=== PATIENT | female | born 1990 ===

== ENCOUNTER 2020-02-14 07:36 | Inpatient (IN) ==
[2020-02-14] MEDS ORDERED: FAMOTIDINE 20 MG/2 ML VIAL IV ONE (08:00)
[2020-02-14] MEDS ORDERED: CITRIC ACID/SODIUM CITRATE 30 ML UDCUP PO ONE (08:00)
[2020-02-14] MEDS ORDERED: ceFAZolin 3,000 MG in SYRINGE 1 EACH IV ONE ×2 (08:00→08:30)
[2020-02-14] MEDS ORDERED: LACTATED RINGERS 1,000 ML IV SCH ×2 (08:00→14:30)
[2020-02-14] MEDS ORDERED: OXYTOCIN 10 UNIT/ML VIAL IM ONE ×2 (08:02→10:04)
[2020-02-14] MEDS ORDERED: OXYTOCIN/LR 30 UNIT/1,000 ML BAG IV ONE (08:02)
[2020-02-14 08:26] LABS: Basophils % 0.2 % (0.0-0.8); Eosinophils # 0.2 10*3/uL (0.0-0.87); Eosinophils % 1.6 % (0.00-10.9); Hematocrit 31.9 VOL% (35.7-47.0); Hemoglobin 10.4 GM/DL (12.0-16.0); Immature Granulocytes % 0.3 %; Immature Granulocytes Absolute 0.03 #; Lymphocytes # 1.9 10*3/uL (1.4-4.0); Lymphocytes % 20.1 % (21.3-54.2); Mean Corpuscular HGB Conc 32.6 GM/DL (32-36); Mean Corpuscular Volume 86.4 FL (87-102); Monocytes % 6.1 % (1.7-12.7); Neutrophils % 71.7 % (38.7-73.9); Platelet Count 390 T/CUMM (130-400); Red Blood Count 3.69 MC/CUMM (3.8-5.5); Red Cell Distribution Width 15.4 % (9.3-17.3); White Blood Count 9.5 T/CUMM (4-12)
[2020-02-14 08:48] LABS: Alanine Aminotransferase 9 U/L (13-56); Albumin 2.3 G/DL (3.4-5.0); Alkaline Phosphatase 143 U/L (45-117); Aspartate Amino Transferase 7 U/L (0-37); Bilirubin,Total < 0.39 MG/DL (0.2-1.0); Blood Urea Nitrogen 9 MG/DL (7-18); Calcium 8.6 MG/DL (8.5-10.1); Estimated Glom Filtration Rate 141 ML/MIN; Glucose 114 MG/DL (74-106); Osmolality,Calculated 278.4 MOS/KG (273-304); Total Protein 6.9 G/DL (6.4-8.3)
[2020-02-14] MEDS ORDERED: PHENYLEPHRINE 1 MG/10 ML SYRINGE IV ONE (09:20)
[2020-02-14] MEDS ORDERED: BUPIVACAINE 0.25% 50 ML VIAL ONE (09:20)
[2020-02-14] MEDS ORDERED: BUPIVACAINE SPINAL 0.75% 2 ML AMP SPINAL ONE (09:21)
[2020-02-14] MEDS ORDERED: DEXAMETHASONE 10 MG/1 ML VIAL ONE (09:21)
[2020-02-14] MEDS ORDERED: MORPHINE 10 MG/10 ML VIAL ONE (09:21)
[2020-02-14] MEDS ORDERED: ONDANSETRON 4 MG/2 ML VIAL ONE ×2 (09:21→09:22)
[2020-02-14] MEDS ORDERED: fentaNYL 100 MCG/2 ML VIAL ONE (09:21)
[2020-02-14] MEDS ORDERED: DEXAMETHASONE 4 MG/1 ML VIAL ONE (09:22)
[2020-02-14 13:16] LABS: Cord Arterial Blood HCO3 21.7 MMOL/L
[2020-02-14 13:19] LABS: Cord Venous Blood HCO3 22.5 MMOL/L; Cord Venous Blood PCO2 55.1 MMHG; Cord Venous Blood PO2 22.6
[2020-02-14 13:24] LABS: Apearance,Urine CLEAR (Clear); Bacteria,Urine Occasional /HPF (Few); Bilirubin,Urine Negative (Negative); Blood, Urine Negative (Negative); Glucose,Urine (UA) Negative (Negative); Ketones,Urine Negative (Negative); Mucus,Urine Occasional /LPF (Occasional); Nitrite,Urine Negative (Negative); Protein,Urine Negative; RBC,Urine 1 /HPF (0-4); Squamous Epithelial Cell,Urine Occasional /HPF (0-10); Urine Color Yellow (Yellow); Urine Specific Gravity 1.029 (1.001-1.035); WBC,Urine 1 /HPF (0-6)
[2020-02-14] MEDS ORDERED: GLYCOPYRROLATE 0.4 MG/2 ML VIAL ONE (13:49)
[2020-02-14] MEDS ORDERED: RHO(D) IMMUNE GLOBULIN 300 MCG SYRINGE IM ONE (14:06)
[2020-02-14] MEDS ORDERED: ACETAMINOPHEN 325 MG TABLET PO PRN (14:06)
[2020-02-14] MEDS ORDERED: ONDANSETRON 4 MG/2 ML VIAL IV PRN (14:06)
[2020-02-14] MEDS ORDERED: OXYTOCIN/LR 20 UNIT/1,000 ML BAG IV ONE (14:06)
[2020-02-14] MEDS: ceFAZolin 1,000 MG in SYRINGE 1 EACH IV SCH (19:34)
[2020-02-14 20:53] LABS: Basophils % 0.2 % (0.0-0.8); Eosinophils % 0.1 % (0.00-10.9); Hematocrit 32.1 VOL% (35.7-47.0); Hemoglobin 10.4 GM/DL (12.0-16.0); Immature Granulocytes % 0.5 %; Immature Granulocytes Absolute 0.08 #; Lymphocytes # 0.9 10*3/uL (1.4-4.0); Lymphocytes % 5.3 % (21.3-54.2); Mean Corpuscular HGB Conc 32.4 GM/DL (32-36); Mean Corpuscular Volume 88.4 FL (87-102); Mean Platelet Volume 8.8 FL (9.6-12.0); Monocytes % 3.1 % (1.7-12.7); Neutrophils % 90.8 % (38.7-73.9); Platelet Count 370 T/CUMM (130-400); Red Blood Count 3.63 MC/CUMM (3.8-5.5); Red Cell Distribution Width 15.4 % (9.3-17.3); White Blood Count 16.9 T/CUMM (4-12)
[2020-02-14 21:33] LABS: Band Neutrophils 1 % (0-10); Lymphocytes 12 % (20-55); Platelet Estimate Normal; Segmented Neutrophils 82 % (50-85); Total Cells Counted 100
[2020-02-15] MEDS: ceFAZolin 1,000 MG in SYRINGE 1 EACH IV SCH (03:30)
[2020-02-15] MEDS: IBUPROFEN 800 MG TABLET PO PRN (03:38)
[2020-02-15 05:27] LABS: Basophils % 0.1 % (0.0-0.8); Eosinophils # 0.1 10*3/uL (0.0-0.87); Eosinophils % 0.4 % (0.00-10.9); Immature Granulocytes % 0.6 %; Immature Granulocytes Absolute 0.08 #; Mean Corpuscular HGB Conc 32.1 GM/DL (32-36); Mean Corpuscular Volume 88.3 FL (87-102); Monocytes % 7.2 % (1.7-12.7); Neutrophils % 76.7 % (38.7-73.9); Platelet Count 339 T/CUMM (130-400); Red Blood Count 3.17 MC/CUMM (3.8-5.5); Red Cell Distribution Width 15.3 % (9.3-17.3); White Blood Count 13.6 T/CUMM (4-12)
[2020-02-15] MEDS: MULTIVITAMIN (PRENATAL) TABLET PO SCH (09:16)
[2020-02-15] MEDS: MAGNESIUM HYDROXIDE SUSP 30 ML UDCUP PO PRN ×2 (09:16→20:00)
[2020-02-15] MEDS: SIMETHICONE CHEW 80 MG TABLET PO PRN (09:16)
[2020-02-15] MEDS: DOCUSATE SODIUM 100 MG CAPSULE PO SCH ×2 (09:17→20:00)
[2020-02-16] MEDS: IBUPROFEN 800 MG TABLET PO PRN ×2 (02:38→09:48)
[2020-02-16] MEDS ORDERED: DIPH/TET/ACEL PERT BOOSTER VACCINE 0.5 ML VIAL IM ONE (08:35)
[2020-02-16 08:58] VITALS: BP 108/63
[2020-02-16] MEDS: DOCUSATE SODIUM 100 MG CAPSULE PO SCH (09:45)
[2020-02-16] MEDS: MULTIVITAMIN (PRENATAL) TABLET PO SCH (09:46)
[2020-02-16] MEDS: MAGNESIUM HYDROXIDE SUSP 30 ML UDCUP PO PRN (09:48)
[2020-02-16] MEDS: SIMETHICONE CHEW 80 MG TABLET PO PRN (09:49)
== END 2020-02-16 12:05 | disposition home or self-care (01) | DRG 540 ==
LOC: N.LD 07:36 → N.OB 16:43
PROVIDERS: ADMIT Obstetrics & Gynecology; ATTEND Obstetrics & Gynecology
PROC: LDCSECT (ICD-10-PCS; 2020-02-14 08:45)

== ENCOUNTER 2021-02-08 12:50 | Inpatient (IN) ==
[2021-02-08 13:18] LABS: Bilirubin,Urine Negative (Negative); Blood, Urine Large mg/dL (Negative); Glucose,Urine (UA) Negative (Negative); Ketones,Urine Negative (Negative); Mucus,Urine Many /LPF (Occasional); Nitrite,Urine Negative (Negative); Protein,Urine 30 MG/DL; RBC,Urine 12 /HPF (0-4); Squamous Epithelial Cell,Urine Occasional /HPF (0-10); Urine Appearance CLEAR (Clear); Urine Color Yellow (Yellow); Urine Specific Gravity 1.029 (1.001-1.035)
[2021-02-08] MEDS ORDERED: LACTATED RINGERS 1,000 ML IV ONE (13:42)
[2021-02-08] MEDS ORDERED: TERBUTALINE 1 MG/1 ML VIAL SUBCUT ONE (13:56)
[2021-02-08] MEDS ORDERED: TERBUTALINE 1 MG/1 ML VIAL ONE (13:58)
[2021-02-08] MEDS ORDERED: LACTATED RINGERS 1,000 ML IV SCH ×2 (14:50→18:00)
[2021-02-08] MEDS ORDERED: MEPERIDINE 50 MG/1 ML VIAL IV ONE (14:53)
[2021-02-08] MEDS ORDERED: MEPERIDINE 50 MG/1 ML VIAL ONE (14:53)
[2021-02-08] MEDS ORDERED: ONDANSETRON 4 MG/2 ML VIAL IV ONE (14:59)
[2021-02-08] MEDS ORDERED: CITRIC ACID/SODIUM CITRATE 30 ML UDCUP PO ONE (15:39)
[2021-02-08] MEDS ORDERED: FAMOTIDINE 20 MG/2 ML VIAL IV ONE ×2 (15:39)
[2021-02-08] MEDS ORDERED: CITRIC ACID/SODIUM CITRATE 30 ML UDCUP ONE (15:39)
[2021-02-08] MEDS ORDERED: ceFAZolin 3,000 MG in SYRINGE 1 EACH IV ONE (15:39)
[2021-02-08] MEDS ORDERED: diphenhydrAMINE 50 MG/1 ML VIAL IV PRN (15:42)
[2021-02-08] MEDS ORDERED: OXYTOCIN/LR 30 UNIT/1,000 ML BAG IV ONE ×2 (15:46→18:17)
[2021-02-08] MEDS ORDERED: TRANEXAMIC ACID 1,000 MG/10 ML VIAL ONE (15:48)
[2021-02-08] MEDS ORDERED: METHYLERGONOVINE 0.2 MG/1 ML AMP ONE (15:48)
[2021-02-08] MEDS ORDERED: miSOPROStoL 200 MCG TABLET ONE (15:48)
[2021-02-08] MEDS ORDERED: CARBOPROST TROMETHAMINE 250 MCG/ML AMP IM ONE (15:49)
[2021-02-08 15:57] LABS: Basophils % 0.2 % (0.0-0.8); Eosinophils # 0.1 10*3/uL (0.0-0.87); Eosinophils % 0.9 % (0.00-10.9); Hematocrit 33.6 VOL% (35.7-47.0); Hemoglobin 10.7 GM/DL (12.0-16.0); Immature Granulocytes % 0.3 %; Immature Granulocytes Absolute 0.03 #; Lymphocytes # 1.8 10*3/uL (1.4-4.0); Mean Corpuscular HGB Conc 31.8 GM/DL (32-36); Mean Platelet Volume 8.8 FL (9.6-12.0); Monocytes % 5.5 % (1.7-12.7); Neutrophils % 77.1 % (38.7-73.9); Platelet Count 358 T/CUMM (130-400); Red Blood Count 3.82 MC/CUMM (3.8-5.5); Red Cell Distribution Width 13.9 % (9.3-17.3); White Blood Count 11.3 T/CUMM (4-12)
[2021-02-08] MEDS ORDERED: OXYTOCIN 10 UNIT/ML VIAL IM ONE (16:00)
[2021-02-08 16:14] LABS: Alanine Aminotransferase < 9 U/L (13-56); Albumin 2.4 G/DL (3.4-5.0); Alkaline Phosphatase 143 U/L (45-117); Aspartate Amino Transferase 9 U/L (0-37); Bilirubin,Total < 0.39 MG/DL (0.2-1.0); Blood Urea Nitrogen 8 MG/DL (7-18); Carbon Dioxide 24 MMOL/L (21-32); Estimated Glom Filtration Rate 143 ML/MIN; Glucose 82 MG/DL (74-106); Osmolality,Calculated 277.3 MOS/KG (273-304); Sodium 141 MMOL/L (136-145); Total Protein 6.6 G/DL (6.4-8.2)
[2021-02-08] MEDS ORDERED: MORPHINE 10 MG/10 ML VIAL ONE (16:25)
[2021-02-08] MEDS ORDERED: ePHEDrine 50 MG/ML VIAL ONE (16:38)
[2021-02-08 16:40] LABS: Rubella Antibody IgG Result Reactive (NonReactive)
[2021-02-08 16:52] LABS: HIV Antigen/Antibody Result Nonreactive (Nonreactive); Hepatitis B Surface Ag Quant < 0.10 Index; Hepatitis B Surface Ag Result Non-Reactive (NonReactive)
[2021-02-08] MEDS ORDERED: propofoL 200 MG/20 ML VIAL IV ONE (16:53)
[2021-02-08] MEDS ORDERED: ONDANSETRON 4 MG/2 ML VIAL ONE (16:53)
[2021-02-08] MEDS ORDERED: SUCCINYLCHOLINE 200 MG/10 ML VIAL ONE (16:53)
[2021-02-08] MEDS ORDERED: MIDAZOLAM 2 MG/2 ML VIAL ONE (16:57)
[2021-02-08] MEDS ORDERED: fentaNYL 100 MCG/2 ML VIAL ONE (16:57)
[2021-02-08 17:17] LABS: Cord Arterial Blood HCO3 22.8 MMOL/L
[2021-02-08 17:18] LABS: Bilirubin,Urine Negative (Negative); Blood, Urine Negative (Negative); Glucose,Urine (UA) Negative (Negative); Ketones,Urine 5 mg/dL (Negative); Mucus,Urine Many /LPF (Occasional); Nitrite,Urine Negative (Negative); Protein,Urine 30 MG/DL; Squamous Epithelial Cell,Urine Occasional /HPF (0-10); Urine Appearance CLEAR (Clear); Urine Color Yellow (Yellow); Urine Urobilinogen < 2.0 EU/DL (0.2-1.0)
[2021-02-08 17:19] LABS: Cord Venous Blood HCO3 23.2 MMOL/L; Cord Venous Blood PO2 40.9
[2021-02-08] MEDS ORDERED: KETOROLAC 30 MG/1 ML VIAL IV PRN ×2 (17:35→20:53)
[2021-02-08] MEDS ORDERED: ACETAMINOPHEN 500 MG TABLET PO PRN ×2 (17:35→20:53)
[2021-02-08] MEDS ORDERED: ONDANSETRON 4 MG/2 ML VIAL IV PRN ×2 (17:38→20:44)
[2021-02-08] MEDS ORDERED: ACETAMINOPHEN 325 MG TABLET PO PRN (17:38)
[2021-02-08] MEDS ORDERED: RHO(D) IMMUNE GLOBULIN 300 MCG SYRINGE IM ONE (17:38)
[2021-02-08] MEDS ORDERED: IBUPROFEN 800 MG TABLET PO PRN (17:38)
[2021-02-08] MEDS ORDERED: SIMETHICONE CHEW 80 MG TABLET PO PRN (17:38)
[2021-02-08] MEDS ORDERED: OXYTOCIN/LR 20 UNIT/1,000 ML BAG IV ONE (17:38)
[2021-02-08] MEDS ORDERED: ceFAZolin 1,000 MG in SYRINGE 1 EACH IV SCH (18:00)
[2021-02-08] MEDS: DOCUSATE SODIUM 100 MG CAPSULE PO SCH (20:46)
[2021-02-08] MEDS ORDERED: PROMETHAZINE 25 MG/1 ML VIAL IM PRN (22:46)
[2021-02-09 05:21] LABS: Basophils % 0.3 % (0.0-0.8); Eosinophils # 0.1 10*3/uL (0.0-0.87); Hematocrit 25.6 VOL% (35.7-47.0); Immature Granulocytes % 0.5 %; Immature Granulocytes Absolute 0.06 #; Lymphocytes # 1.6 10*3/uL (1.4-4.0); Lymphocytes % 14.5 % (21.3-54.2); Mean Corpuscular Volume 87.7 FL (87-102); Mean Platelet Volume 9.3 FL (9.6-12.0); Monocytes % 6.1 % (1.7-12.7); Neutrophils % 77.6 % (38.7-73.9); Platelet Count 320 T/CUMM (130-400); Red Cell Distribution Width 13.8 % (9.3-17.3); White Blood Count 11.1 T/CUMM (4-12)
[2021-02-09 05:22] LABS: Hemoglobin 8.2 GM/DL (12.0-16.0); Red Blood Count 2.92 MC/CUMM (3.8-5.5)
[2021-02-09] MEDS: DOCUSATE SODIUM 100 MG CAPSULE PO SCH ×3 (10:45→21:27)
[2021-02-09] MEDS: MAGNESIUM HYDROXIDE SUSP 30 ML UDCUP PO PRN ×2 (10:45→19:50)
[2021-02-09] MEDS: MULTIVITAMIN (PRENATAL) TABLET PO SCH (10:45)
[2021-02-09] MEDS: METOCLOPRAMIDE 10 MG TABLET PO SCH ×2 (10:45→17:22)
[2021-02-09] MEDS ORDERED: ceFAZolin 1,000 MG in SYRINGE 1 EACH IV SCH (11:00)
[2021-02-09] MEDS ORDERED: BENZOCAINE/MENTHOL LOZENGE 18/BOX PO PRN (17:24)
[2021-02-10] MEDS: METOCLOPRAMIDE 10 MG TABLET PO SCH ×4 (03:02→23:22)
[2021-02-10] MEDS ORDERED: BENZOCAINE/MENTHOL LOZENGE 18/BOX PO PRN (05:22)
[2021-02-10] MEDS: MULTIVITAMIN (PRENATAL) TABLET PO SCH (09:55)
[2021-02-10] MEDS: DOCUSATE SODIUM 100 MG CAPSULE PO SCH ×2 (09:55→21:15)
[2021-02-10] MEDS: FERROUS SULFATE 325 MG TABLET PO SCH (21:15)
[2021-02-10] MEDS: MAGNESIUM HYDROXIDE SUSP 30 ML UDCUP PO PRN (21:15)
[2021-02-10] MEDS: TRIAMCINOLONE 0.1% CREAM 15 GM TUBE TOP SCH (22:20)
[2021-02-11 07:25] VITALS: BP 127/75
[2021-02-11] MEDS ORDERED: MAGNESIUM CITRATE 300 ML BOTTLE PO ONE (09:09)
[2021-02-11] MEDS: METOCLOPRAMIDE 10 MG TABLET PO SCH (09:20)
[2021-02-11] MEDS: FERROUS SULFATE 325 MG TABLET PO SCH (09:20)
[2021-02-11] MEDS: DOCUSATE SODIUM 100 MG CAPSULE PO SCH (09:20)
[2021-02-11] MEDS: MULTIVITAMIN (PRENATAL) TABLET PO SCH (09:20)
[2021-02-11] MEDS: TRIAMCINOLONE 0.1% CREAM 15 GM TUBE TOP SCH (09:21)
== END 2021-02-11 12:20 | disposition home or self-care (01) | DRG 540 ==
LOC: N.LDOUT 12:50 → N.LD 12:52 → N.OB 20:17
PROVIDERS: ADMIT Obstetrics & Gynecology; ATTEND Obstetrics & Gynecology
PROC: LDCSECT (ICD-10-PCS; 2021-02-08 16:00)